=== PATIENT | female | born 1940 | race African-American/Black ===

== ENCOUNTER → 2024-01-30 | Outpatient (CLI) | payer MEDICARE ==
--- NOTE | 2024-01-30 15:55 | HMCIMG ---
Exam: CERVICAL SPINE 2 VIEWS REASON: CERVICAL MYELOPATHY, CERVICAL RADICULOPATHY, ARM PAIN, ULNAR NERVE ENTRAPME TECHNIQUE: 4 views were obtained. FINDINGS: There are normal appearing vertebral bodies. There is marked interspace narrowing C3-C6. Remaining interspaces are preserved. Alignment is normal. There are no focal osseous lesions. There are surgical changes in the region of the thyroid. There are no visible fractures. Soft tissues appear unremarkable. IMPRESSION: 1. Marked degenerative disc disease, no acute finding.
== END | disposition home or self-care (01) ==
LOC: RAH 13:03
PROVIDERS: ATTEND Internal Medicine
DX: M50.00 Cervical disc disorder with myelopathy, unspecified cervical region (principal); M50.10 Cervical disc disorder with radiculopathy, unspecified cervical region; G56.20 Lesion of ulnar nerve, unspecified upper limb; G95.9 Disease of spinal cord, unspecified; M79.603 Pain in arm, unspecified; M48.02 Spinal stenosis, cervical region
CPT/HCPCS: 72040